=== PATIENT | male | born 1940 | race Two or more races ===

== ENCOUNTER → 2016-07-04 | Outpatient (CLI) | payer MEDICARE, BC ==
--- NOTE | 2016-07-04 09:13 | RAD ---
Lumbar spine, lateral flexion and extension views, 07/04/2016: History: Spondylolisthesis, back pain Lateral views of the lumbar spine were obtained in flexion and extension. A supine lateral neutral view was also obtained. No previous radiographs are available at this time for comparison purposes. The following findings are delineated on this limited exam: 1. There are extensive degenerative changes involving the facet joints in the lower lumbar spine. There is an associated grade 1-2 spondylolisthesis at L5-S1. There is approximately 9 mm of anterior subluxation of the L5 vertebral body relative to S1. There does not appear to be significant instability on flexion and extension. 2. Moderate degenerative disc disease is present at L4-5. 3. Mild scattered spurs are present at other levels in the lumbar spine.
--- NOTE | 2016-07-04 10:49 | RAD ---
CT of the lumbar spine without contrast, 07/04/2016: History: Back pain, spondylolisthesis, spinal stenosis Noncontrast scans were obtained with multiplanar reconstructions performed. The data was transferred to the operating room to aid in the patient's stereotactically guided surgery. The following findings are delineated: 1. There is minimal posterior disc bulging at L1-2. There are mild degenerative changes involving the facet joints. The central spinal canal and neural foramina are not significantly narrowed. 2. At L2-3 there is mild broad-based posterior disc bulging. There are mild degenerative changes involving the facet joints. The central spinal canal is well-preserved. There is mild inferior foraminal narrowing. 3. At L3-4 there is mild posterior disc bulging. There is mild posterior ligamentous thickening. There is borderline narrowing of the thecal sac in a triangular configuration. There is mild inferior foraminal narrowing. 4. At L4-5 there is disc space narrowing with a vacuum disc phenomena. There is moderate broad-based posterior disc protrusion and mild marginal spurring. There is extensive posterior ligamentous thickening due to facet joint arthropathy. The combination of findings is causing moderate central spinal stenosis and moderate inferior foraminal narrowing more so on the right. 5. L5-S1 there are extensive hypertrophic degenerative changes involving the facet joints with vacuum phenomena. There are prominent spurs arising from the anterior aspects of the facet joints. There is moderate associated posterior ligamentous thickening. There is a mild spondylolisthesis at L5-S1. There is disc degeneration with a vacuum phenomena at this level. There is moderate posterior disc protrusion, worse on the left. The combination of findings is causing moderate central spinal stenosis in a triangular configuration. There is severe left foraminal encroachment and moderate right foraminal encroachment.
== END | disposition home or self-care (01) ==
LOC: RAD 08:42
PROVIDERS: ATTEND Neurological Surgery
DX: M51.36 Other intervertebral disc degeneration, lumbar region (principal); M43.16 Spondylolisthesis, lumbar region; M48.06 Spinal stenosis, lumbar region
CPT/HCPCS: 72100; 72131

== ENCOUNTER → 2016-07-31 | Outpatient (CLI) | payer MEDICARE, BC ==
[~2016-07-31] MED LIST: CHOL10007 PO; DOCU-27 PO; GLIM4TAB2 PO; HYDR12.58 PO; IBUP-1060 PO; INSU100I30 SQ; METF10002 PO; METH750T2 PO; OXYC1TAB7 PO; TAMS0.4C2 PO; VALS1TAB27 PO
--- NOTE | 2016-07-31 15:08 | EKG ---
[facility] [address] [place] [address] Test Date: 2016-07-31 Test Time: 15:07:04 Pat Name: DANY KEARNEY Department: Room: Gender: M Pm Technician: ELAINE : 1940 Requested By: POOJA LEE Order Number: [id number] Reading MD: Raúl Butcher Measurements Intervals [place] Rate: 88 P: 24 ME: 144 QRS: -6 QRSD: 74 T: 41 QT: 304 QTc: 371 Interpretive Statements SINUS RHYTHM LEFTWARD AXIS QRS(T) CONTOUR ABNORMALITY CONSISTENT WITH INFERIOR INFARCT PROBABLY OLD ABNORMAL ECG RI6.01 No previous ECG available for comparison Electronically Signed On 08-03-2016 13:56:46 ALLOCATIONS CLERK by Raúl Butcher
[2016-07-31 15:31] LABS: BASO # 0.1 x10^3/uL (0.0-0.2); BASO % 1 % (0-3); EOS % 3 % (0-3); HEMATOCRIT 38.6 % (39.0-53.0); HEMOGLOBIN 12.3 g/dL (13.0-17.5); LYMPH # 1.6 x10^3/uL (1.0-4.8); LYMPH % 29 % (24-48); MEAN CORPUSCULAR HEMOGLOBIN 28 pg (25-35); MEAN CORPUSCULAR HGB CONC 32 g/dL (31-37); MEAN CORPUSCULAR VOLUME 88 fL (79-100); MONO % 11 % (0-9); NEUT % 57 % (31-73); PLATELET COUNT 231 x10^3/uL (140-400); RED BLOOD COUNT 4.39 x10^6/uL (4.30-5.70); WHITE BLOOD COUNT 5.6 x10^3/uL (4.0-11.0)
[2016-07-31 15:42] LABS: INR 1.1 (0.8-1.1); PROTHROMBIN TIME PATIENT 13.4 SEC (11.7-14.0)
[2016-07-31 15:51] LABS: ALBUMIN 3.6 g/dL (3.4-5.0); CALCIUM 9.4 mg/dL (8.5-10.1); CREATININE 1.3 mg/dL (0.7-1.3); GFR 53.8; POTASSIUM 4.5 mmol/L (3.5-5.1); TOTAL BILIRUBIN 0.3 mg/dL (0.2-1.0); TOTAL PROTEIN 7.2 g/dL (6.4-8.2)
== END | disposition home or self-care (01) ==
LOC: SURGPAT 14:01
PROVIDERS: ATTEND Neurological Surgery
DX: Z01.818 Encounter for other preprocedural examination (principal)
CPT/HCPCS: 36415; 80053; 83036; 85027; 85610; 85730; 87641; 93005

== ENCOUNTER 2016-08-09 12:00 | Inpatient (IN) | payer MEDICARE, BC ==
[~2016-08-09] VITALS: Ht 165.1 cm; Wt 89.8 kg
[~2016-08-09 12:00] MED LIST changes: -DOCU-27 PO; -METH750T2 PO; -OXYC1TAB7 PO
--- NOTE | 2016-08-11 19:02 | PREOP HP ---
DATE OF SERVICE: 08/14/2016 HISTORY OF PRESENT ILLNESS: The patient is a pleasant 76-year-old who has problems with bilateral lower back pain and pain which radiates into his buttocks and hips, lateral thighs and anterior legs. With the standing, the problem becomes more severe and he notes his pain can reach on an 8-9/10. He has difficulty with standing and walking for more than 10 minutes. He gets relief with sitting. He had epidural steroid injections, which gave him minimal relief. PAST MEDICAL HISTORY: Hypertension, kidney stones, UTIs, diabetes. PAST SURGICAL HISTORY: Hernia in 1964, hernia in 1995, LASIK surgery in 1989, bilateral knee surgery in 1993, tonsillectomy in 1965. FAMILY HISTORY: Diabetes and hypertension. SOCIAL HISTORY: . Retired. Exercises daily by walking. Denies tobacco use. Denies substance abuse. Drinks alcohol once to twice per month. Drinks coffee and soda daily. ALLERGIES: IODINE. CURRENT MEDICATIONS: Tamsulosin, finasteride, metformin, hydrochlorothiazide losartan, Lantus, ibuprofen. REVIEW OF SYSTEMS: A 12-point review of systems was obtained and is noncontributory except for that mentioned above. NEUROSURGERY EXAMINATION: GENERAL APPEARANCE: Alert, pleasant, in no acute distress. HEAD: Normocephalic and atraumatic. SKIN: Warm and dry. MUSCULOSKELETAL: Lumbar paraspinal muscle bulk is normal, restricted range of motion of the lumbar spine, [id number] tenderness of lower lumbar spine with palpation, normal range of motion of the lower extremities bilaterally. EXTREMITIES: No clubbing, cyanosis, or edema. NEUROLOGIC: Alert and oriented x 3, normal recent and remote memory, strength 5/5 in bilateral lower extremities, sensory was intact to light touch in the lower extremities bilaterally, reflexes were present and symmetric in bilateral lower extremities, negative straight leg raising bilaterally, normal gait. IMAGING DATA: I reviewed a lumbar MRI scan from June [address] scan done recently. On those studies, he had lumbar spinal stenosis, which is significant at L4-L5 and L5-S1. At L5-S1, there is also minimal anterolisthesis with the patient in supine. On flexion and extension views, the anterolisthesis becomes more significant reaching a full grade 1, small grade 2. ASSESSMENT/ PLAN: He has severe spinal stenosis in the lumbar region at L4-L5 and L5-S1. This will require lumbar laminectomies at both levels. Additionally, his spondylolisthesis is at L5-S1 will require posterior instrumentation at this level. I did discuss with him surgery including the technique, risks, and expected postoperative course. He would like to proceed. We will make the arrangements. POOJA LEE MD DR: OSCAR/lulu JOB#: [id number] / [id number] CAROLINA
[2016-08-14] VITALS (9 sets, daily range): BP systolic 115–132; BP diastolic 64–77
[2016-08-14] MEDS ORDERED: CEFAZOLIN 2GM PREMIX 50 ML IV PRN (06:00)
[2016-08-14] MEDS ORDERED: BACITRACIN 50,000 UNIT in IV NORMAL SALINE 1000ML BAG 1,000 ML IRR ONE (06:00)
[2016-08-14] MEDS ORDERED: PROCHLORPERAZINE 10 MG/2 ML VIAL. IV PRN (07:00)
[2016-08-14] MEDS ORDERED: HYDROMORPHONE 2 MG/ML VIAL. IV PRN (07:00)
[2016-08-14] MEDS ORDERED: FENTANYL PF 100 MCG/2 ML VIAL. IV PRN ×3 (07:00→14:45)
[2016-08-14] MEDS ORDERED: ONDANSETRON PF 4 MG/2 ML VIAL. IV PRN ×2 (07:00→14:45)
[2016-08-14] MEDS ORDERED: IV RINGERS,LACTATED 1000ML 1,000 ML IV SCH (07:00)
[2016-08-14] MEDS ORDERED: LIDOCAINE 1% 1 ML SYRINGE. ID PRN (07:00)
[2016-08-14] MEDS ORDERED: MIDAZOLAM HCL 2 MG/2 ML VIAL. ONE (08:56)
[2016-08-14] MEDS ORDERED: FENTANYL PF 100 MCG/2 ML VIAL. ONE (08:56)
[2016-08-14] MEDS ORDERED: LIDOCAINE 2% 100 MG/5 ML DISP.SYRIN. ONE (08:57)
[2016-08-14] MEDS ORDERED: GLYCOPYRROLATE 1 MG/5 ML VIAL. ONE (08:57)
[2016-08-14] MEDS ORDERED: REMIFENTANIL 2 MG VIAL. IV ONE ×2 (08:57→13:30)
[2016-08-14] MEDS ORDERED: PROPOFOL 50 ML IV ONE ×3 (08:57→16:05)
[2016-08-14] MEDS ORDERED: ROCURONIUM 50 MG/5 ML VIAL. ONE (08:57)
[2016-08-14] MEDS ORDERED: DEXAMETHASONE SOD PHOS 20 MG/5 ML VIAL. ONE (08:57)
[2016-08-14] MEDS ORDERED: DESFLURANE > 120 MINUTES IH ONE (08:57)
[2016-08-14] MEDS ORDERED: PROPOFOL 20 ML IV ONE (08:57)
[2016-08-14] MEDS ORDERED: ONDANSETRON PF 4 MG/2 ML VIAL. ONE (08:57)
[2016-08-14] MEDS ORDERED: PHENYLEPHRINE 10 MG/ML VIAL. ONE ×3 (09:04→14:27)
[2016-08-14] MEDS ORDERED: EPHEDRINE PF IN SALINE 50 MG/5 ML DISP.SYRIN. IV ONE (11:21)
[2016-08-14] MEDS ORDERED: GELATIN SPONGE SIZE 100. TP ONE (12:12)
[2016-08-14] MEDS ORDERED: BUPIVAC MPF-EPI 0.5%-1:200000 30 ML VIAL. IJ ONE (12:12)
[2016-08-14] MEDS ORDERED: KETOROLAC 60 MG/2 ML SYRINGE FOR OR. INJ ONE (12:12)
[2016-08-14] MEDS ORDERED: THROMBIN 20,000 UNIT SPRAY.SYRN KIT TP ONE ×2 (12:12→13:10)
--- NOTE | 2016-08-14 12:16 | RAD ---
Indication: Back pain. Surgical planning. Technique: Axial images and coronal and sagittal reformatted images along with oblique axial images through selected interspaces were obtained. Imaging was performed for surgical planning. Comparison is from July 04, 2016. One or more of the following individualized dose reduction techniques were utilized for this examination: 1. Automated exposure control 2. Adjustment of the mA and/or kV according to patient size 3. Use of iterative reconstruction technique Findings: There is no change in alignment. There is again mild levocurvature centered at L4. Grade 1 anterolisthesis at L5-S1 is noted. Vacuum disc at L4-L5 and L5-S1 is noted. There is no fracture. At L4-L5, there is a disc osteophyte complex and facet hypertrophy. There is ligamentum flavum hypertrophy. There is canal stenosis and at least mild to moderate foraminal narrowing. There may have been a partial laminectomy on the left. At L5-S1, disc bulge and facet and ligamentum flavum hypertrophy result in circumferential narrowing of the spinal canal and at least moderate foraminal narrowing. Impression: CT obtained for operative planning purposes.
[2016-08-14] MEDS ORDERED: KETOROLAC 60 MG/2 ML SYRINGE FOR OR. ONE (13:10)
[2016-08-14] MEDS ORDERED: BUPIVAC MPF-EPI 0.5%-1:200000 30 ML VIAL. ONE (13:10)
[2016-08-14] MEDS ORDERED: GELATIN SPONGE SIZE 100. ONE (13:10)
[2016-08-14] MEDS: POTASSIUM CL 20MEQ-0.45% NACL 1,000 ML IV SCH (14:44)
[2016-08-14] MEDS ORDERED: CALCIUM CARBONATE 500 MG TAB.CHEW PO PRN (14:45)
[2016-08-14] MEDS ORDERED: ACETAMINOPHEN 325 MG TABLET. PO PRN (14:45)
[2016-08-14] MEDS ORDERED: DIPHENHYDRAMINE 50 MG/ML VIAL IV PRN (14:45)
[2016-08-14] MEDS ORDERED: DIPHENHYDRAMINE HCL 25 MG CAPSULE PO PRN (14:45)
[2016-08-14] MEDS ORDERED: DEXTROSE 50% 25 GM / 50ML DISP.SYRIN. IV PRN (14:45)
[2016-08-14] MEDS ORDERED: OXYCODONE/APAP 5/325 TABLET. PO PRN (14:45)
[2016-08-14] MEDS ORDERED: MAG HYDROX/ALUMINUM HYD/SIMETH 30 ML ORAL.SUSP PO PRN (14:45)
[2016-08-14] MEDS ORDERED: 0.9 % SODIUM CHLORIDE 10 ML DISP.SYRIN. IV PRN (14:45)
[2016-08-14] MEDS ORDERED: MAGNESIUM HYDROXIDE 2,400 MG/30 ML ORAL.SUSP. PO PRN (14:45)
[2016-08-14 15:24] LABS: HEMATOCRIT 34.9 % (39.0-53.0); HEMOGLOBIN 11.3 g/dL (13.0-17.5); WHITE BLOOD COUNT 11.1 x10^3/uL (4.0-11.0)
[2016-08-14] MEDS ORDERED: REMIFENTANIL 1 MG VIAL. IV ONE (16:07)
[2016-08-14] MEDS ORDERED: 0.9 % SODIUM CHLORIDE 50 ML VIAL. IJ ONE (16:08)
[2016-08-14] MEDS ORDERED: CEFAZOLIN 2GM PREMIX 50 ML IV ONE (16:15)
[2016-08-14] MEDS: FENTANYL PF 100 MCG/2 ML VIAL. IV PRN ×2 (17:26→17:35)
[2016-08-14] MEDS: MORPHINE SULFATE 2 MG/ML DISP.SYRIN. IV PRN ×2 (17:43→17:53)
[2016-08-14] MEDS ORDERED: METOPROLOL TARTRATE 5 MG/5 ML VIAL. ONE (17:45)
[2016-08-14 18:00] LABS: HEMATOCRIT 33.1 % (39.0-53.0); HEMOGLOBIN 10.6 g/dL (13.0-17.5)
[2016-08-14] MEDS ORDERED: METOPROLOL TARTRATE 5 MG/5 ML VIAL. IVP ONE ×2 (18:00→19:15)
[2016-08-14] MEDS ORDERED: INSULIN ASPART 100 UNIT/ML 10ML VIAL. SQ ONE (18:22)
[2016-08-14] MEDS ORDERED: INSULIN ASPART 100 UNIT/ML 10ML VIAL. SQ PRN (18:30)
[2016-08-14] MEDS: METFORMIN 1,000 MG TABLET PO SCH (20:30)
[2016-08-14] MEDS ORDERED: INSULIN DETEMIR 300 UNITS/3 ML INSULN.PEN. SQ SCH (21:00)
[2016-08-14] MEDS ORDERED: INSULIN DEGLUDEC 15 UNIT SQ SCH (21:00)
[2016-08-14] MEDS: CEFAZOLIN SODIUM 1 GM in IV NORMAL SALINE 50ML 50 ML IV SCH (21:35)
[2016-08-14] MEDS: DOCUSATE SODIUM 100 MG CAPSULE PO SCH (21:36)
[2016-08-14] MEDS: METHOCARBAMOL 750 MG TABLET PO SCH (21:36)
[2016-08-14] MEDS: GLIMEPIRIDE 2 MG TABLET PO SCH (21:36)
[2016-08-14] MEDS ORDERED: METFORMIN 1,000 MG TABLET PO ONE (22:00)
[2016-08-15] MEDS: OXYCODONE/APAP 5/325 TABLET. PO PRN ×3 (01:24→12:44)
[2016-08-15 03:22] VITALS: BP 106/68
[2016-08-15] MEDS: POTASSIUM CL 20MEQ-0.45% NACL 1,000 ML IV SCH (03:58)
[2016-08-15] MEDS: CEFAZOLIN SODIUM 1 GM in IV NORMAL SALINE 50ML 50 ML IV SCH ×2 (04:07→12:43)
[2016-08-15 07:00] VITALS: BP 114/65
[2016-08-15] MEDS ORDERED: LOSARTAN POTASSIUM 50 MG TABLET. PO SCH (09:00)
[2016-08-15] MEDS ORDERED: HYDROCHLOROTHIAZIDE 12.5 MG CAPSULE. PO SCH (09:00)
[2016-08-15] MEDS ORDERED: TAMSULOSIN 0.4 MG CAP.ER.24H. PO SCH (09:00)
[2016-08-15] MEDS ORDERED: HYDROCHLOROTHIAZIDE 25 MG TABLET PO SCH (09:00)
[2016-08-15] MEDS: METHOCARBAMOL 750 MG TABLET PO SCH ×2 (09:41→12:44)
[2016-08-15] MEDS: GLIMEPIRIDE 2 MG TABLET PO SCH (09:41)
[2016-08-15] MEDS: METFORMIN 1,000 MG TABLET PO SCH (09:41)
[2016-08-15] MEDS: DOCUSATE SODIUM 100 MG CAPSULE PO SCH (09:43)
--- NOTE | 2016-08-15 10:00 | DISCH ---
DISCHARGE INSTRUCTIONS Condition on Discharge Condition on Discharge: Stable Activity After Discharge Activity Instructions for Disc: Activity as tolerated, Avoid exertion Bathing Instructions: Shower-keep dressing dry Lifting Instructions after Dis: No heavy lifting, No pulling or pushing, Do not lift >10 pounds Driving Instructions after Dis: No driving for 2 weeks Diet after Discharge Diet after Discharge: Diabetic No Calorie Level Additional Diet Restrictions: resume home diet Wound Incision Care Wound/Incision Care: Ice to area for comfort Other wound/incision instructi: may remove dressing in 48 hrs if dry then may shower- no soaking Contacting the after DC Call your doctor for: Concerns you may have Follow-Up Follow up with: Dr. Armstrong's nurse in 2 weeks [phone] JERRELL ALLEN APRN Aug 15, 2016 09:59
[2016-08-15] MEDS ORDERED: DOCU-27 PO (10:01)
[2016-08-15] MEDS ORDERED: OXYC1TAB7 PO (10:01)
[2016-08-15] MEDS ORDERED: METH750T2 PO (10:01)
--- NOTE | 2016-08-15 10:24 | PDOC ---
PROGRESS NOTES Subjective Subjective POD #1 Incisional pain, controlled with medication ambulated in room Objective Objective Vital Signs Date Time Temp Pulse Resp B/P Pulse Ox O2 Delivery O2 Flow Rate FiO2 08/15/16 09:42 114 114/65 08/15/16 07:39 20 95 Room Air 08/15/16 07:00 98.1 98.1 08/14/16 18:32 10.0 Intake and Output 08/15/16 07:00 Intake Total 3415 ml Output Total 1000 ml Balance 2415 ml Intake Oral 515 ml IV Total 2900 ml Output Urine Total 400 ml Estimated Blood Loss 600 ml # Voids 2 Physical Exam General: Alert, Oriented X3, Cooperative, No acute distress MUSCULOSKELETAL: Other (AGUILERA) Neuro: Normal speech Psych/Mental Status: Mental status NL Skin: Other (dressing C,D,I, flat- just changed per RN) Assessment Assessment Problems Medical Problems: (1) Lumbar spinal stenosis Status: Acute Plan Plan of Care May dc home today f/u 2 weeks Comment Review of Relevant I have reviewed the following items norma (where applicable) has been applied. Labs Laboratory Tests Test 08/14/16 12:48 08/14/16 15:05 08/14/16 17:40 08/14/16 18:16 Glucose (Fingerstick) 134mg/dL (70-99) 231mg/dL (70-99) White Blood Count 11.1x10^3/uL (4.0-11.0) Hemoglobin 11.3g/dL (13.0-17.5) 10.6g/dL (13.0-17.5) Hematocrit 34.9% (39.0-53.0) 33.1% (39.0-53.0) Platelet Count 217x10^3/uL (140-400) Mean Corpuscular Hemoglobin Concent 32g/dL (31-37) Test 08/14/16 19:03 08/14/16 21:11 08/15/16 07:21 Glucose (Fingerstick) 236mg/dL (70-99) 299mg/dL (70-99) 199mg/dL (70-99) Laboratory Tests Test 08/14/16 12:48 08/14/16 15:05 08/14/16 17:40 08/14/16 18:16 Glucose (Fingerstick) 134mg/dL (70-99) 231mg/dL (70-99) White Blood Count 11.1x10^3/uL (4.0-11.0) Hemoglobin 11.3g/dL (13.0-17.5) 10.6g/dL (13.0-17.5) Hematocrit 34.9% (39.0-53.0) 33.1% (39.0-53.0) Platelet Count 217x10^3/uL (140-400) Mean Corpuscular Hemoglobin Concent 32g/dL (31-37) Test 08/14/16 19:03 08/14/16 21:11 08/15/16 07:21 Glucose (Fingerstick) 236mg/dL (70-99) 299mg/dL (70-99) 199mg/dL (70-99) Medications Current Medications Ondansetron HCl (Zofran) 4 mg PRN Q6HRS PRN IV Nausea; Start 08/14/16 at 07:00 ; Stop 08/15/16 at 06:59; Status DC Fentanyl Citrate (Fentanyl 2ml Vial) 25 mcg PRN Q5MIN PRN IV MILD PAIN; Start 08/14/16 at 07:00; Stop 08/15/16 at 06:59; Status DC Fentanyl Citrate (Fentanyl 2ml Vial) 50 mcg PRN Q5MIN PRN IV MODERATE PAIN Last administered on 08/14/16 17:35; Start 08/14/16 at 07:00; Stop 08/15/16 at 06:59; Status DC Morphine Sulfate 1 mg 1 mg PRN Q10MIN PRN IV SEVERE PAIN Last administered on 17:53; Start 08/14/16 at 07:00; Stop 08/15/16 at 06:59; Status DC Lactated Ringer's (Iv Lactated Ringers) 1,000 ml @ 30 mls/hr Q24H IV Last administered on 08/14/16 09:00; Start 08/14/16 at 07:00; Stop 08/15/16 at 06:59 ; Status DC Lidocaine HCl 2 ml 1X PRN PRN ID IV START; Start 08/14/16 at 07:00; Stop at 06:59; Status DC Hydromorphone HCl (Dilaudid) 0.5 mg PRN Q10MIN PRN IV SEVERE PAIN, Second choice; Start 08/14/16 at 07:00; Stop 08/15/16 at 06:59; Status DC Prochlorperazine Edisylate 5 mg 5 mg PACU PRN PRN IV NAUSEA; Start 08/14/16 at 07:00; Stop 08/15/16 at 06:59; Status DC Bacitracin 94917 unit/Sodium Chloride 1,000 ml @ 1,000 mls/hr 1X PERIOP ONCE IRR Last administered on 08/14/16 12:12; Start 08/14/16 at 06:00; Stop at 06:59; Status DC Cefazolin Sodium/ Dextrose (Ancef 2gm Premix) 50 ml @ 100 mls/hr 1X PREOP PRN IV PRIOR TO PROCEDURE Last administered on 08/14/16 12:06; Start 08/14/16 at 06 :00; Stop 08/14/16 at 18:00; Status DC Midazolam HCl (Versed) 2 mg STK-MED ONCE .ROUTE ; Start 08/14/16 at 08:56; Stop 08/14/16 at 08:57; Status DC Fentanyl Citrate (Fentanyl 2ml Vial) 100 mcg STK-MED ONCE .ROUTE ; Start at 08:56; Stop 08/14/16 at 08:57; Status DC Remifentanil HCl (Ultiva) 2 mg STK-MED ONCE IV ; Start 08/14/16 at 08:57; Stop 08/14/16 at 08:58; Status DC Glycopyrrolate (Robinul) 1 mg STK-MED ONCE .ROUTE ; Start 08/14/16 at 08:57; Stop 08/14/16 at 08:58; Status DC Rocuronium [place] (Zemuron) 50 mg STK-MED ONCE .ROUTE ; Start 08/14/16 at 08:57 ; Stop 08/14/16 at 08:58; Status DC Desflurane 90 ml 90 ml STK-MED ONCE IH ; Start 08/14/16 at 08:57; Stop 08/14/16 at 08:58; Status DC Propofol (Diprivan) 20 ml @ As Directed STK-MED ONCE IV ; Start 08/14/16 at 08: 57; Stop 08/14/16 at 08:58; Status DC Lidocaine HCl 100 mg STK-MED ONCE .ROUTE ; Start 08/14/16 at 08:57; Stop at 08:58; Status DC Dexamethasone Sodium Phosphate (Decadron) 20 mg STK-MED ONCE .ROUTE ; Start at 08:57; Stop 08/14/16 at 08:58; Status DC Ondansetron HCl 4 mg 4 mg STK-MED ONCE .ROUTE ; Start 08/14/16 at 08:57; Stop at 08:58; Status DC Propofol (Diprivan) 50 ml @ As Directed STK-MED ONCE IV ; Start 08/14/16 at 08: 57; Stop 08/14/16 at 08:58; Status DC Phenylephrine HCl (Kevin-Synephrine Inj) 10 mg STK-MED ONCE .ROUTE ; Start at 09:04; Stop 08/14/16 at 09:05; Status DC Ephedrine Sulfate 50 mg STK-MED ONCE IV ; Start 08/14/16 at 11:21; Stop at 11:22; Status DC Phenylephrine HCl 10 mg 10 mg STK-MED ONCE .ROUTE ; Start 08/14/16 at 12:36; Stop 08/14/16 at 12:37; Status DC Propofol (Diprivan) 50 ml @ As Directed STK-MED ONCE IV ; Start 08/14/16 at 12: 37; Stop 08/14/16 at 12:38; Status DC Bupivacaine HCl/ Epinephrine Bitart (Sensorcain-Mpf Epi 0.5%-1:585578) 30 ml STK -MED ONCE IJ Last administered on 08/14/16 12:12; Start 08/14/16 at 12:12; Stop 08/14/16 at 12:46; Status DC Ketorolac Tromethamine (Toradol For Or Only) 60 mg STK-MED ONCE INJ Last administered on 08/14/16 12:12; Start 08/14/16 at 12:12; Stop 08/14/16 at 12:46 ; Status DC Gelatin (Gelfoam Size 100) 1 each STK-MED ONCE TP Last administered on 12:12; Start 08/14/16 at 12:12; Stop 08/14/16 at 12:46; Status DC Thrombin 20,000 unit STK-MED ONCE TP Last administered on 08/14/16 12:12; Start 08/14/16 at 12:12; Stop 08/14/16 at 12:46; Status DC Thrombin 20,000 unit STK-MED ONCE TP ; Start 08/14/16 at 13:10; Stop 08/14/16 at 13:11; Status DC Bupivacaine HCl/ Epinephrine Bitart (Sensorcain-Mpf Epi 0.5%-1:100528) 30 ml STK -MED ONCE .ROUTE ; Start 08/14/16 at 13:10; Stop 08/14/16 at 13:11; Status DC Ketorolac Tromethamine (Toradol For Or Only) 60 mg STK-MED ONCE .ROUTE ; Start 08/14/16 at 13:10; Stop 08/14/16 at 13:11; Status DC Gelatin (Gelfoam Size 100) 1 each STK-MED ONCE .ROUTE ; Start 08/14/16 at 13:10 ; Stop 08/14/16 at 13:11; Status DC Remifentanil HCl (Ultiva) 2 mg STK-MED ONCE IV ; Start 08/14/16 at 13:30; Stop 08/14/16 at 13:31; Status DC Phenylephrine HCl (Kevin-Synephrine Inj) 10 mg STK-MED ONCE .ROUTE ; Start at 14:27; Stop 08/14/16 at 14:28; Status DC Metformin HCl (Glucophage) 1,000 mg BIDWMEALS PO Last administered on 09:41; Start 08/14/16 at 18:00 Tamsulosin HCl (Flomax) 0.4 mg DAILY PO Last administered on 08/15/16 09:42; Start 08/15/16 at 09:00 Glimepiride (Amaryl) 4 mg BID PO Last administered on 08/15/16 09:41; Start at 21:00 Hydrochlorothiazide (Hydrodiuril) 25 mg DAILY PO Last administered on 09:43; Start 08/15/16 at 09:00 Non-Formulary Medication 15 unit HS SQ ; Start 08/14/16 at 21:00; Stop 08/15/16 at 10:16; Status DC Losartan Potassium (Cozaar) 100 mg DAILY PO Last administered on 08/15/16 09: 42; Start 08/15/16 at 09:00 Fentanyl Citrate (Fentanyl 2ml Vial) 25 mcg PRN Q1HR PRN IV PAIN; Start at 14:45 Fentanyl Citrate (Fentanyl 2ml Vial) 50 mcg PRN Q1HR PRN IV PAIN; Start at 14:45 Dextrose 12.5 gm PRN Q15MIN PRN IV SEE COMMENTS; Start 08/14/16 at 14:45 Acetaminophen (Tylenol) 650 mg PRN Q6HRS PRN PO MILD PAIN / TEMP; Start at 14:45 Al Hydroxide/Mg Hydroxide (Mylanta Plus Xs) 30 ml PRN Q3HRS PRN PO HEARTBURN / GAS; Start 08/14/16 at 14:45 Calcium Carbonate/ Glycine (Tums) 500 mg PRN Q3HRS PRN PO INDIGESTION; Start at 14:45 Diphenhydramine HCl (Benadryl) 25 mg PRN Q6HRS PRN PO ITCHING; Start 08/14/16 at 14:45 Diphenhydramine HCl (Benadryl) 25 mg PRN Q6HRS PRN IV ITCHING; Start 08/14/16 at 14:45 Sodium Chloride 3 ml 3 ml QSHIFT PRN IV AFTER MEDS AND BLOOD DRAWS; Start 08/14 at 14:45 Potassium Chloride/Sodium Chloride (KCl 20 Meq-0.45% Nacl) 1,000 ml @ 75 mls/ hr [id number] IV ; Start 08/14/16 at 14:44; Stop 08/15/16 at 03:58; Status DC Oxycodone/ Acetaminophen (Percocet 5/325) 1 tab PRN Q4HRS PRN PO MILD PAIN, 1ST CHOICE Last administered on 08/15/16 07:39; Start 08/14/16 at 14:45 Oxycodone/ Acetaminophen (Percocet 5/325) 2 tab PRN Q4HRS PRN PO MODERATE PAIN , SEVERE PAIN; Start 08/14/16 at 14:45 Methocarbamol (Robaxin) 750 mg TID PO Last administered on 08/15/16 09:41; Start 08/14/16 at 21:00 Docusate Sodium (Colace) 100 mg BID PO Last administered on 08/15/16 09:43; Start 08/14/16 at 21:00 Magnesium Hydroxide (Milk Of Magnesia) 2,400 mg PRN Q12HR PRN PO CONSTIPATION; Start 08/14/16 at 14:45 Ondansetron HCl 4 mg 4 mg PRN Q6HRS PRN IV NAUESA, 1ST CHOICE; Start 08/14/16 at 14:45 Cefazolin Sodium 1 gm/Sodium Chloride 50 ml @ 100 mls/hr Q8H IV Last administered on 08/15/16 04:07; Start 08/14/16 at 20:00; Stop 08/15/16 at 12:29 Propofol (Diprivan) 50 ml @ As Directed STK-MED ONCE IV ; Start 08/14/16 at 16: 05; Stop 08/14/16 at 16:06; Status DC Remifentanil HCl (Ultiva) 1 mg STK-MED ONCE IV ; Start 08/14/16 at 16:07; Stop 08/14/16 at 16:08; Status DC Sodium Chloride 50 ml 50 ml STK-MED ONCE IJ ; Start 08/14/16 at 16:08; Stop at 16:09; Status DC Cefazolin Sodium/ Dextrose (Ancef 2gm Premix) 50 ml @ 100 mls/hr 1X ONCE IV Last administered on 08/14/16 16:00; Start 08/14/16 at 16:15; Stop 08/14/16 at 17:50; Status DC Metoprolol Tartrate (Lopressor) 5 mg STK-MED ONCE .ROUTE ; Start 08/14/16 at 17: 45; Stop 08/14/16 at 17:46; Status DC Metoprolol Tartrate (Lopressor) 5 mg 1X ONCE IVP Last administered on 17:52; Start 08/14/16 at 18:00; Stop 08/14/16 at 18:01; Status DC Hydrochlorothiazide (Microzide) 12.5 mg DAILY PO Last administered on 09:42; Start 08/15/16 at 09:00 Insulin Aspart (Novolog Vial) 100 unit STK-MED ONCE SQ ; Start 08/14/16 at 18:22 ; Stop 08/14/16 at 18:23; Status DC Insulin Aspart (Novolog Vial) 5 unit 1X PACU PRN SQ SEE COMMENTS Last administered on 08/14/16 18:26; Start 08/14/16 at 18:30 Metoprolol Tartrate (Lopressor) 5 mg 1X ONCE IVP Last administered on 18:30; Start 08/14/16 at 19:15; Stop 08/14/16 at 19:22; Status DC Insulin Detemir (Levemir) 25 units QHS SQ Last administered on 08/14/16 21:47 ; Start 08/14/16 at 21:00 Metformin HCl (Glucophage) 1,000 mg 1X ONCE PO Last administered on 08/14/16 21:57; Start 08/14/16 at 22:00; Stop 08/14/16 at 22:01; Status DC Active Scripts Active Reported Ibuprofen 800 Mg Tablet 800 Mg PO PRN Q6HRS PRN Vitamin D3 (Cholecalciferol (Vitamin D3)) 1,000 Unit Capsule 1,000 Unit PO DAILY Tresiba Flextouch U-100 (Insulin Degludec) 100 Unit/1 Ml Insuln.pen 15 Unit SQ HS Valsartan-Hctz 160-12.5 Mg Tab (Valsartan/Hydrochlorothiazide) 1 Each Tablet 1 Each PO DAILY Glimepiride 4 Mg Tablet 1 Tab PO BID Metformin Hcl 1,000 Mg Tablet 1 Tab PO BID Hydrochlorothiazide Tablet (Hydrochlorothiazide) 12.5 Mg Tablet 25 Mg PO DAILY Tamsulosin Hcl 0.4 Mg Cap.er.24h 0.4 Mg PO DAILY Vitals/I & O Vital Sign - Last 24 Hours 08/14/16 08/14/16 08/14/16 08/14/16 16:59 16:59 17:15 17:26 Temp 97.0 97.0 Pulse 130 129 Resp 20 20 20 B/P 110/55 127/72 Pulse Ox 100 100 100 O2 Delivery Mask Simple Mask Simple Mask Simple Mask O2 Flow Rate 10 10 10 10.0 08/14/16 08/14/16 08/14/16 08/14/16 17:32 17:35 17:43 17:47 Temp 97.0 97.0 Pulse 132 116 Resp 20 20 15 14 B/P 128/71 125/68 Pulse Ox 100 99 97 97 O2 Delivery Simple Mask Simple Mask Room Air Room Air O2 Flow Rate 10 10.0 08/14/16 08/14/16 08/14/16 08/14/16 17:52 17:53 18:02 18:17 Temp 97.0 97.0 97.0 97.0 Pulse 132 113 113 Resp 15 B/P 125/68 130/64 117/57 Pulse Ox 96 96 96 O2 Delivery Room Air Room Air Room Air O2 Flow Rate 10.0 08/14/16 08/14/16 08/14/16 08/14/16 18:30 18:32 19:10 19:10 Temp 97.0 97.0 97.0 97.0 Pulse 112 113 113 B/P 168/64 117/66 117/66 Pulse Ox 96 96 O2 Delivery Room Air Room Air Room Air O2 Flow Rate 10.0 08/14/16 08/14/16 08/14/16 08/14/16 19:37 19:52 20:07 20:22 Pulse 116 116 113 113 Resp 18 B/P 132/68 127/70 117/70 123/70 Pulse Ox 99 O2 Delivery Room Air 08/14/16 08/14/16 08/14/16 08/14/16 20:37 21:07 21:37 22:37 Pulse 125 119 116 110 B/P 128/77 115/75 119/64 124/67 08/15/16 08/15/16 08/15/16 08/15/16 01:24 02:25 03:22 07:00 Temp 97.7 98.1 97.7 98.1 Pulse 113 114 Resp 20 20 18 18 B/P 106/68 114/65 Pulse Ox 99 99 95 96 O2 Delivery Room Air Room Air Room Air Room Air 08/15/16 08/15/16 07:39 09:42 Pulse 114 Resp 20 B/P 114/65 Pulse Ox 95 O2 Delivery Room Air Intake and Output 08/14/16 08/14/16 08/15/16 15:00 23:00 07:00 Intake Total 3040 ml 375 ml Output Total 1000 ml Balance 2040 ml 375 ml JERRELL ALLEN APRN Aug 15, 2016 10:24
[2016-08-15 11:00] VITALS: BP 112/66
--- NOTE | 2016-08-16 13:45 | PATHOLOGY ---
PATHOLOGY REPORT * * * * * * * * FINAL DIAGNOSIS: Segments of fibrocartilaginous, fibroadipose, and skeletal muscle tissue and bone, lumbar disc and decompression: - Degenerative changes of fibrocartilaginous tissue. COMMENT: There is no evidence of an acute inflammatory process or malignancy. (JPM:; d/t: 08/16/16) REPORT ELECTRONICALLY SIGNED BY: Eric Palomares M.D. DATE/TIME: 08/16/2016 13:44 * * * * * * * * GROSS PATHOLOGY: Received in formalin labeled "Chuck Kearney, lumbar disc and decompression" are multiple segments of taylor, rubbery, and gritty tissue admixed with bone. The specimen measures 7.2 x 5.0 x 0.8 cm in aggregate dimensions. The tissue is submitted representatively in cassette A1, following decalcification. (CAA; 08/15/2016) INITIAL CPT CODE(S): A; 13108, 38432 Professional services performed by [facility] [place] [address] Technical services performed by [facility] at [address] [place] [address]. SPECIMEN(S) RECEIVED: A.Lumbar disc and decompression CLINICAL HISTORY: Lumbar stenosis, spondylolisthesis PATIENT: CHUCK KEARNEY /AGE: 8 1940 (Age: 76) PATIENT #: [id number] ALT CASE #: SPECIMEN COLLECTION DATE: 08/14/2016 SPECIMEN RECEIVED DATE: 08/15/2016 [facility] - [address] [place] [address] - PHONE: [phone] * * * END OF REPORT * * *
--- NOTE | 2016-08-27 12:49 | OP ---
DATE OF SURGERY: 08/14/2016 PREOPERATIVE DIAGNOSES: Lumbar spinal stenosis at L4-L5 and L5-S1 with spondylolisthesis with motion, L5-S1. POSTOPERATIVE DIAGNOSIS: Lumbar spinal stenosis at L4-L5 and L5-S1 with spondylolisthesis with motion, L5-S1. OPERATION PERFORMED: Lumbar laminectomy at L4-L5 and L5-S1 with posterior instrumentation at L5-S1 and posterolateral fusion at L5-S1. The operation was done with stimulated EMG monitoring, fluoroscopy, microscopic dissection, BrainLAB guidance, and bone marrow aspiration. PROGRAM SCHEDULER: MOOKIE Berkowitz, assisted with the surgery. She assisted with the placement of the pedicle screws and decompression. SERGIO Cervantes, also assisted. She assisted with the laminectomy as well as the closure. OPERATIVE INDICATIONS: The patient is a very pleasant 76-year-old man who developed problems with severe back pain along with pain which radiated into his hips and lower extremities. He failed conservative measures, and the problem became progressively worse, and after being apprised of the surgery, the technique, the operation, and the risks associated with the surgery, he wished to go ahead. DESCRIPTION OF PROCEDURE: Following general endotracheal anesthesia, the patient was positioned prone on the Prince table. His lumbar region was then prepped and draped in the standard fashion. BONIFACIO hose and AV impulse boots were placed for DVT prophylaxis. A microscope was draped. Fluoroscopy was draped and brought into field. Monitoring was established. Ancef 2 grams was given less than 1 hour prior to initiation of the surgery and repeated at 4-hour intervals. Pins were placed into the right iliac crest, and the BrainLAB system was initialized. I then made a midline incision from superior L4-S1. I dissected down through the skin and subcutaneous tissue and reflected the paraspinal muscles and placed self-retaining retractors. Using the BrainLAB, I placed pedicle screws at L5 and S1, first on the left side and then on the right side. This was done in the following fashion. The BrainLAB system and anatomic landmarks were used to determine the location of the pedicle which I drilled into with first the high-speed air drill and then passed the black ball followed by tap, followed by screw placement. During this time, I placed a Jamshidi needle into the left iliac crest and aspirated 20 mL of bone marrow. I packed allograft bone into the lateral gutter after excoriating transverse processes and lateral facets, first on the left side, and then the screws were placed using NuVasive system, and the divya was placed, and nuts were applied, but not yet torqued, and then on the right side in a similar fashion, the bone was placed. After excoriation, the screws were placed, and the nuts were applied, but not yet torqued. I then brought in the microscope, and using the rongeurs and high-speed air drill, I burred down a laminectomy first at L4-L5 and then at L5-S1. This bone was morcellized and also used to pack into the lateral gutters. I did use bone wax as well as bipolar cautery for hemostasis. Then following this, I torqued the S1 screws with the rods, and then by slowly tightening the L5 screw nuts, I was able to effect a reduction of L5 in relation to S1. I then torqued the construct and reviewed fluoroscopic images showing a significant reduction of spondylolisthesis. At this point, then I had an excellent reduction of spondylolisthesis, had laminectomy completed which decompressed the dura and the nerve roots. I irrigated copiously with antibiotic solution. I removed the retractors, obtained hemostasis in the muscle and then closed the wound with absorbable sutures in layers, and the skin was closed with 4-0 subcuticular stitch. The operation went very well, and the patient was awakened uneventfully, taken to Recovery Room with normal strength in lower extremities. I was quite pleased with the surgery. POOJA LEE MD DR: OSCAR/lulu JOB#: [id number] / [id number]
== END 2016-08-15 14:30 | disposition home or self-care (01) | DRG 460 ==
LOC: OPSVCIP 08-14 08:07 → 4 NORTH 08-14 19:11
PROVIDERS: ADMIT Neurological Surgery; ATTEND Neurological Surgery
PROC: 0SG30Z1 (ICD-10-PCS; 2016-08-14)
PROC: 0QB10ZZ Excision of Sacrum, Open Approach (ICD-10-PCS; 2016-08-14)
PROC: 0QB00ZZ Excision of Lumbar Vertebra, Open Approach (ICD-10-PCS; principal; 2016-08-14 10:30)
DX: M48.07 Spinal stenosis, lumbosacral region (principal); M43.17 Spondylolisthesis, lumbosacral region; E11.9 Type 2 diabetes mellitus without complications; I10 Essential (primary) hypertension; Z82.49 Family history of ischemic heart disease and other diseases of the circulatory system; Z83.3 Family history of diabetes mellitus; Z87.442 Personal history of urinary calculi; Z91.041 Radiographic dye allergy status; Z79.899 Other long term (current) drug therapy
CPT/HCPCS: 36415; 72131; 76000; 82947; 85014; 85018; 85027; 86850; 86900; 86901; 88304; 88311; C1713; J0690; J1100; J1815; J1885; J2250; J2270; J2405; J2704; J3010; J3490; J7030; J7120; C1768

== ENCOUNTER → 2016-11-28 | Outpatient (CLI) | payer MEDICARE, BC ==
[2016-09-05 15:00] VITALS: BP 111/65
[~2016-11-28] MED LIST changes: +CHOL100014 PO; -CHOL10007 PO; +DOCU-109 PO; +FURO-68 PO; +METF-620 PO; -METF10002 PO; +METH750T2 PO; +OXYC1TAB7 PO
--- NOTE | 2016-11-28 09:49 | RAD ---
Indication: Spinal stenosis and back pain. Time of exam 0924 hours. Curvature of the lumbar spine is normal. There appears to be grade 1 spondylolisthesis of L5 on S1. Vertebral body heights are maintained. No acute compression fracture is seen. There is significant degenerative disc disease at the L4-5 level where there is near complete loss of the disc space. There is endplate sclerosis and marginal osteophyte formation. Milder multilevel lumbar spondylosis is also noted with variable disc space narrowing and marginal spurring. There are atherosclerotic calcifications in the abdominal aorta. Impression: Lumbar spondylosis and spondylolisthesis, as described. No acute bony abnormality is detected.
== END | disposition home or self-care (01) ==
LOC: RAD 09:01
PROVIDERS: ATTEND Neurological Surgery
DX: M48.06 Spinal stenosis, lumbar region (principal); M47.896 Other spondylosis, lumbar region; M43.16 Spondylolisthesis, lumbar region; I70.0 Atherosclerosis of aorta
CPT/HCPCS: 72100